=== PATIENT | female | born 1965 | race Hispanic/Latino ===

== ENCOUNTER 2021-03-19 17:24 | Emergency (ER) | payer SELFPAY ==
[2021-03-19] MEDS ORDERED: TETRACAINE IJ ONE (18:49)
[2021-03-19] MEDS ORDERED: SODIUM CHLORIDE 0.9% 1000 ML 1,000 ML IV ONE (19:13)
[2021-03-19] MEDS ORDERED: BALANCED SALT IRRIG 1 DROPS, TETRACAINE 0.5% 1 DROPS, FLUORESCEIN 1 MG OU ONE (19:30)
[2021-03-19] MEDS ORDERED: HYDROcodone/ACETAMINOPHEN 10-325MG TAB PO ONE (19:40)
[2021-03-19] MEDS ORDERED: ONDANSETRON 4 MG ODT TAB PO ONE (19:40)
[2021-03-19] MEDS ORDERED: ONDANSETRON 4 MG/2 ML INJ IM ONE (19:42)
[2021-03-19] MEDS ORDERED: HYDROmorphone 1 MG/1 ML INJ IM ONE (19:42)
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
[2021-03-20] MEDS ORDERED: HYDROmorphone 1 MG/1 ML INJ IV ONE (02:28)
[2021-03-20] MEDS ORDERED: ONDANSETRON 4 MG/2 ML INJ IV ONE (02:29)
[2021-03-20 03:51] VITALS: BP 125/86
== END 2021-03-20 03:40 | disposition other institution (70) ==
LOC: ED 17:24
DX: T26.62XA Corrosion of cornea and conjunctival sac, left eye, initial encounter (principal); T26.61XA Corrosion of cornea and conjunctival sac, right eye, initial encounter; X58.XXXA Exposure to other specified factors, initial encounter; Y93.89 Activity, other specified; Y92.89 Other specified places as the place of occurrence of the external cause; Y99.8 Other external cause status; Z79.899 Other long term (current) drug therapy
CPT/HCPCS: 96361; 96372; 96374; 96375; 99291; J1170; J2405; J7030